=== PATIENT | male | born 1990 | race Caucasian/White ===

== ENCOUNTER 2019-12-20 17:52 | Emergency (ER) | payer OTHER ==
[~2019-12-20] VITALS: Ht 182.9 cm; Wt 106.5 kg
[2019-12-20 18:02] VITALS: BP 189/98
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
[2019-12-20] MEDS ORDERED: CEPH-264 PO (18:26)
[2019-12-20] MEDS ORDERED: CEPHALEXIN 250 MG CAPSULE PO ONE (18:30)
[2019-12-20] MEDS ORDERED: CEPHALEXIN 250 MG CAPSULE ONE (18:34)
== END 2019-12-20 18:28 | disposition home or self-care (01) ==
LOC: EEVIPCON 17:52 → ER 17:52
DX: L03.114 Cellulitis of left upper limb (principal); R20.0 Anesthesia of skin; L53.9 Erythematous condition, unspecified; Z88.0 Allergy status to penicillin
CPT/HCPCS: 99283